=== PATIENT | male | born 1990 | race African-American/Black ===

== ENCOUNTER 2025-01-14 09:08 | Outpatient (REF) | payer OTHER, SELFPAY ==
[2025-01-14 13:15] LABS: Appearance Urine Clear; Glucose Urine UA Negative (Negative); PH 6.0 (5.0-9.0); Specific Gravity - Urine 1.025 (1.005-1.025)
[2025-01-14 13:17] LABS: MANUAL DIFF FLAG NO
[2025-01-14 13:26] LABS: Hematocrit 42.6 % (42.0-52.0); Hemoglobin 13.2 g/dl (14.0-18.0); Imm Gran Abs Auto 0.04 X10*3/uL (0.00-0.03); Imm Gran Pct Auto 0.4 % (0.0-0.4); Lymphocytes Absolute Auto 3.1 X10*3/uL (1.2-4.9); Mean Corpuscular HGB Conc 31.0 g/dl (31.0-36.0); Mean Corpuscular Hemoglobin 28.6 pg (27.0-33.0); Mean Corpuscular Volume 92.2 fL (80.0-98.0); NRBC Abs Auto 0.000 X10*3/uL (0.0-0.012); NRBC Pct Auto 0.0 /100WBC (0.0-0.2); Platelet Count 246 X10*3/uL (160-400); Red Blood Count 4.62 X10*6/uL (4.60-5.80); White Blood Count 10.8 X10*3/uL (4.8-10.8)
[2025-01-14 14:17] LABS: Alanine Aminotransferase 52 U/L (0-40); Albumin Level 4.6 g/dL (3.5-5.0); Alkaline Phosphatase 86 U/L (39-117); Anion Gap 12 (12-20); Aspartate Amino Transferase 46 U/L (5-37); Blood Urea Nitrogen 18 mg/dL (9-16); Calcium 9.7 mg/dL (8.4-10.2); Carbon Dioxide 27 mmol/L (22-29); Chloride 106 mmol/L (96-108); Cholesterol 200 mg/dL (<200); Estimated Glomerular Filt Rate > 60; HDL Cholesterol 44 mg/dL (>40); Magnesium 2.2 mg/dL (1.6-2.6); Potassium 4.5 mmol/L (3.3-5.1); Sodium 140 mmol/L (135-145); Total Protein 7.7 g/dL (6.5-8.0); Triglycerides 124 mg/dL (<150)
[2025-01-14 14:34] LABS: CT PCR Urine NOT DETECTED (Not Detect.); NG PCR Urine NOT DETECTED (Not Detect.)
[2025-01-14 14:40] LABS: Folate 9.5 ng/mL (> or = 4.0); Vitamin B12 461 pg/mL (200-900)
[2025-01-15 04:18] LABS: Syphilis Screen Nonreactive (Nonreactive)
[2025-01-15 05:05] LABS: HBS Num1 42.43 mIU/mL (0-7.99); HBsAGNum1 0.51 S/CO (0.00-0.99); HIV Num 1 0.09 S/CO (0.00-0.99); Hepatitis B Surface Antigen Negative (Negative); ~HepC Num1 0.08 S/CO (0.00-0.79); ~Hepatitis B Surface Antibody REACTIVE (Nonreactive); ~Hepatitis C Antibody Nonreactive (Nonreactive)
[2025-01-17 23:13] LABS: Chlamydia Trachomatis IgA <1:16 titer (<1:16)
[2025-01-18 10:48] LABS: VITAMIN D (1,25 OH) D3 37 pg/mL; Vit D (1,25-Dihydroxy) Total 37 pg/mL (18-72); Vitamin D (1,25 OH) D2 <8 pg/mL
== END 2025-01-14 09:09 | disposition home or self-care (01) ==
LOC: HO.HKASLDS 09:08
PROVIDERS: PCP Student in an Organized Health Care Education/Training Program; Visit Provider Student in an Organized Health Care Education/Training Program
DX: R06.83 Snoring (principal); M54.30 Sciatica, unspecified side; R53.83 Other fatigue; R51.9 Headache, unspecified; G89.29 Other chronic pain; G47.00 Insomnia, unspecified; E66.811 Obesity, class 1; F12.90 Cannabis use, unspecified, uncomplicated; Z68.32 Body mass index [BMI] 32.0-32.9, adult
CPT/HCPCS: 80053; 80061; 81003; 82607; 82652; 82746; 83036; 83735; 84443; 85025; 86631; 86632; 86706; 86780; 86803; 87340; 87389; 87491; 87591; 99202; 99212

== ENCOUNTER 2025-01-14 09:08 | Outpatient (AMB) | payer OTHER, SELFPAY ==
--- NOTE | 2025-01-14 09:20 | A.OFFPC_ITS ---
Vital Signs 01/14/25 09:29 Height 5 ft 11.26 in Weight 235 lb 6 oz BMI 32.6 BP 131/77 Blood Pressure Location Rt brachial Position Sitting Respiration 16 Pulse 80 Pulse Source Pulse Oximeter Temp 98 F Temp Source Oral Pulse Oximetry (%) 98 Oxygen Delivery Method Room Air Intake Visit Reasons: NEW PATIENT- Back pain Accompanied by: Self / Same As Patient Allergies No Known Allergies Allergy (Verified 01/14/25 09:21) Tobacco use date assessed: 01/14/25 Dental Screening Dental Screen Date: 01/14/25 Did you have a dental visit in the last 12 months?: No Did you have a dental problem in the last 6 months where you did not have access to dental care?: No Was dental information given to patient?: No HPI HPI Comments History of Present Illness Details Consent Patient was informed and verbally consented to the use of an ambient scribe for clinic note documentation during this visit. History of Present Illness The patient is a 34-year-old male presenting with new left-sided pain suspected to be sciatica. Sciatica: - The patient reports new left-sided dara n that started approximately a week ago, described as a movement-induced pain that feels like electricity and is not tender to touch. - The pain occasionally radiates to the back and is described as pulsating, with certain movements exacerbating the discomfort. - The patient has a history of chronic b ack pain but notes this pain is different and more concerning. - Current interventions include ibuprofe n, lidocaine patches, acetaminophen, and methylcarbamol, with some relief noted from the lidocaine patch. Chronic low back pain: - The patient has a history of chronic l ow back pain, which he describes as a persistent issue that has been present for a long time. - The pain is typically managed with ove s-szh-[id number] medications and has not been associated with any recent trauma or specific inciting event. Sleep disturbance: - The patient reports difficulty sleepin g, often waking up tired and with headaches, which has been a persistent issue. - A home sleep study has been recommende d to evaluate for possible sleep apnea or other sleep disorders. Review of Systems - Musculoskeletal: Reports new left-side d pain, chronic low back pain. Denies recent trauma. - Neurological: Reports pain described a s electricity-like and pulsating. Denies numbness or tingling. - Sleep: Reports difficulty sleeping, wa kellen up tired, and headaches upon waking. 10-point ROS reviewed and negative excep t as noted in HPI Past Medical History - Chronic low back pain Health Maintenance - Recommended a home sleep study to barbara woo for sleep apnea. Physical Exam General: Well-appearing, in no acute distress. Vital signs: Within normal limits. HEENT: Normocephalic, atraumatic. PERRLA, EOMI. Conjunctiva clear, sclera a nicteric. Oropharynx clear, mucous membranes moist. TMs intact bilaterally. Neck: Supple, no lymphadenopathy, no thyromegaly, no JVD or carotid bruits. Cardiovascular: RRR, normal S1/S2, no murmurs, rubs, or gallops. Peripheral pulses 2+ and symmetric. No edema. Respiratory: Lungs clear to auscultation bilaterally, no wheezes, rales, or rhonchi. Normal effort. Abdomen: Soft, non-tender, non-distended. Normoactive bowel sounds. No hepatosplenomegaly, no masses. MSK: Full range of motion, no joint swelling or deformity. Normal gait. Reports chronic low back pain and new pain on the left side, possibly related to sciatica. Pain described as pulsating and movement-related, not tender to touch. Skin: Warm, dry, intact. No rashes, lesions, or pallor. Neuro: Alert and oriented x3. Cranial nerves II-XII intact. Strength 5/5 throughout. Sensation intact. Reflexes 2+ symmetric. Normal coordination and gait. Psych: Appropriate mood and affect. Normal judgment and insight. Reports difficulty sleeping and waking up tired, possibly related to sleep apnea. Plan 1. Sciatica - Continue current medications including ibuprofen and lidocaine patches. Initiate physical therapy to strengthen muscles and reduce inflammation. - Plan to monitor symptoms and adjust tr eatment as necessary based on response to therapy. 2. Chronic Low Back Pain - Continue with current pain management regimen and encourage regular physical activity to prevent exacerbation. 3. Sleep Disturbance - Conduct a home sleep study to assess f or sleep apnea or other disorders. Follow-up to discuss results and potential interventions. Discussion Notes I discussed with the patient the likely diagnosis of sciatica and the importance of physical therapy to alleviate symptoms. We reviewed the current medication regimen and its effectiveness. I recommended a home sleep study to evaluate for sleep apnea, which could be contributing to his sleep disturbances. Patient Instructions - Continue taking ibuprofen and using li docaine patches as needed for pain relief. - Attend physical therapy sessions to [facility] and reduce inflammation. - Complete the home sleep study and retu rn the equipment as instructed. - Follow up in one week to review progre ss and discuss any changes in symptoms. Medical Decision Making The patient's presentation is consistent with sciatica, likely due to nerve compression. The decision to initiate physical therapy is based on the need to strengthen supporting muscles and reduce inflammation. A home sleep study is warranted to investigate potential sleep apnea, which may be affecting his overall health and contributing to his fatigue and headaches. Total time spent caring for the patient today was 30 minutes. This includes time spent before the visit reviewing the chart, time spent documenting, and time spent reviewing laboratory results, diagnostic imaging, medications, performing a medically necessary evaluation, counseling on diagnoses, care coordination, ordering appropriate tests. [facility] Medical History (Updated 01/14/25 @ 09:51 by Hair Nicole MD) Fatigue Snoring Insomnia Sciatica Chronic lower back pain Family History (Updated 01/14/25 @ 09:31 by Floyd Bates MA) Father Diabetes Mother No problems noted. Social History (Updated 01/14/25 @ 09:31 by Floyd Bates MA) Housing: House Alcohol intake: current Alcohol intake frequency: does not drink Patient Tobacco Use Status: Never used Tobacco service: No Current occupational status: employed Cognitive needs: No Hearing needs: No Vision needs: No Questionnaire PHQ-9 Over the last 2 weeks, how often have you been bothered by any of the following problems? 1. Little interest or pleasure in doing things: several days 2. Feeling down, depressed, or hopeless: not at all 3. Trouble falling or staying asleep, or sleeping too much: more than half the days 4. Feeling tired or having little energy: several days 5. Poor appetite or overeating: not at all 6. Feeling bad about yourself - or that you are a failure or have let yourself or your family down: not at all 7. Trouble concentrating on things, such as reading the newspaper or watching television: not at all 8. Moving or speaking so slowly that other people could have noticed. Or the opposite - being so fidgety or restless that you have been moving around a lot more than usual: not at all 9. Thoughts that you would be better off or of hurting yourself in some way: not at all Total score: 4 Source: Developed by Drs. Jesus Wallis, Stacy Foster, Colten Holloway and colleagues, with an educational blanche from [employer]. Thrive Questionnaire Date Thrive assessed: 01/14/25 I am a: Patient What is your living situation today?: I have a steady place to live Within the past 12 months, did the food you bought not last and you didn't have the money to get more?: Sometimes True Within the past 12 months, did you worry whether your food would run out before you got money to buy more?: Sometimes True Do you have trouble paying for medicines?: No Do you have trouble getting transportation to medical appointments?: No Do you have trouble paying your heating and electricity bill?: No Do you have trouble taking care of your child, family member or friend?: No Are you currently unemployed and looking for a job?: No Are you interested in more education?: Yes Please select the resources that you would like help with: Housing/Senior Care Currently or been in a relationship where the following occur: No concerns reported THRIVE Score: 2 AUDIT C Alcohol Use Questionnaire (AUDIT-C) 1. How often do you have a drink containing alcohol?: Never Total Score: 0 AMEENA-7 AMB Questionnaire AMEENA-7 Date AMEENA - 7 assessed: 01/14/25 Feeling nervous, anxious, or on edge: 1 = Several days Not being able to stop or control worryin = Not at all Worrying too much about different things: 1 = Several days Trouble relaxin = Several days Being so restless that it is hard to sit still: 0 = Not at all Becoming easily annoyed or irritable: 0 = Not at all Feeling afraid as if something awful might happen: 0 = Not at all Total AMEENA-7 score (0-4 normal; 5-9 mild; 10-14 moderate; 15-21 severe): 3 Source: Developed by Drs. Jesus Wallis, Stacy Foster, Colten Holloway and colleagues, with an educational blanche from [employer]. Physical exam (Primary Care) Vital Signs: Last Vital Signs Temp 98 F 01/14/25 09:29 Pulse 80 01/14/25 09:29 Resp 16 01/14/25 09:29 BP 131/77 01/14/25 09:29 Pulse Ox 98 01/14/25 09:29 Oxygen Delivery Method Room Air 01/14/25 09:29 BMI result Body Mass Index 32.6 Tobacco/Smoking Status: Tobacco use Status Tobacco use date assessed 01/14/25 01/14/25 09:24 Patient Tobacco Use Status Never used Tobacco 01/14/25 09:31 PHQ-9: PHQ-9 Score PHQ-9: Total score 4 01/14/25 09:24 Thrive Assessment: Date of Thrive Assessment Date Thrive assessed 01/14/25 01/14/25 09:24 Currently or been in a relationship where the following occur: No concerns reported Coding Level of Care Code New Pt Level 4 (84188) Diagnoses Sciatica M54.30 Chronic lower back pain M54.50; G89.29 Insomnia G47.00 Snoring R06.83 Fatigue R53.83 Class 1 obesity E66.811 Marijuana use F12.90 Assessment & Plan Assessment & Plan (1) Sciatica: Code(s): M54.30 - Sciatica, unspecified side Category: Medical (2) Chronic lower back pain: Code(s): M54.50 - Low back pain, unspecified; G89.29 - Other chronic pain Category: Medical (3) Insomnia: Code(s): G47.00 - Insomnia, unspecified Category: Medical (4) Snoring: Code(s): R06.83 - Snoring Category: Medical (5) Fatigue: Code(s): R53.83 - Other fatigue Category: Medical (6) Class 1 obesity: Code(s): E66.811 - Obesity, class 1 (7) Marijuana use: Code(s): F12.90 - Cannabis use, unspecified, uncomplicated Plan Orders: Orders Hemoglobin A1c Today Z13.9 - Encounter for screening, unspecified Hepatitis B Surface Antigen Today Z13.9 - Encounter for screening, unspecified TSH reflex Free T4 Today Z13.9 - Encounter for screening, unspecified UA CC w/rflx Micro + Cult Today Z13.9 - Encounter for screening, unspecified Vitamin B12 and Folate Today Z13.9 - Encounter for screening, unspecified Vitamin D 1,25 dihydroxy Today Z13.9 - Encounter for screening, unspecified PT Evaluation and Treatment Today G89.29 - Other chronic pain, M54.30 - Sciatica, unspecified side, M54.50 - Low back pain, unspecified Complete Blood Count Auto Diff Today Z13.9 - Encounter for screening, unspecifi ed Comprehensive Met. Panel Today Z13.9 - Encounter for screening, unspecified Hepatitis B Surface Antibody Today Z13.9 - Encounter for screening, unspecified Hepatitis C Antibody Today Z13.9 - Encounter for screening, unspecified HIV Ab/Ag Today Z13.9 - Encounter for screening, unspecified Lipid Panel Today Z13.9 - Encounter for screening, unspecified Chlamydia Species Ab Panel Today Z13.9 - Encounter for screening, unspecified CT NG by PCR Urine Today Z13.9 - Encounter for screening, unspecified Syphilis Screen Today Z13.9 - Encounter for screening, unspecified Magnesium Today Z13.9 - Encounter for screening, unspecified RT home sleep study Today G47.00 - Insomnia, unspecified, R06.83 - Snoring, R53.83 - Other fatigue
[2025-01-14 09:29] VITALS: BP 131/77; PULSE 80; RESP 16; TEMP 36.6; O2SAT 98; BMI 32.6
== END 2025-01-14 09:55 | disposition home or self-care (01) ==
LOC: HO.HMCFMS 09:08
PROVIDERS: PCP Student in an Organized Health Care Education/Training Program; Visit Provider Student in an Organized Health Care Education/Training Program
DX: M54.30 Sciatica, unspecified side (principal); M54.50 Low back pain, unspecified; G89.29 Other chronic pain; G47.00 Insomnia, unspecified; R06.83 Snoring; R53.83 Other fatigue; E66.811 Obesity, class 1; F12.90 Cannabis use, unspecified, uncomplicated

== ENCOUNTER 2025-01-29 09:25 | Outpatient (AMB) | payer OTHER, SELFPAY ==
[2025-01-29 09:32] VITALS: BP 130/74; PULSE 91; RESP 16; TEMP 36.5; O2SAT 97; BMI 32.1
--- NOTE | 2025-01-29 09:32 | A.OFFPC_ITS ---
Vital Signs 01/29/25 09:32 Height 5 ft 11.26 in Weight 232 lb 2 oz BMI 32.1 BP 130/74 Blood Pressure Location Lt brachial Position Sitting Respiration 16 Pulse 91 Pulse Source Pulse Oximeter Temp 97.7 F Temp Source Oral Pulse Oximetry (%) 97 Oxygen Delivery Method Room Air Intake Visit Reasons: 2 week follow up Accompanied by: Self / Same As Patient Allergies No Known Allergies Allergy (Verified 01/29/25 09:35) Medication List - Last Reconciled 01/29/25 by Hair Nicole MD acetaminophen 1,000 mg PO Q6H PRN ibuprofen 600 mg PO QID PRN lidocaine 5% 1 patch topical Q3D methocarbamol 750 mg PO BEDTIME triamcinolone acetonide 0.1% 1 appl topical DAILY Tobacco use date assessed: 01/14/25 Dental Screening Dental Screen Date: 01/29/25 Did you have a dental visit in the last 12 months?: No Did you have a dental problem in the last 6 months where you did not have access to dental care?: No Was dental information given to patient?: No HPI HPI Comments History of Present Illness Details Consent Patient was informed and verbally consented to the use of an ambient scribe for clinic note documentation during this visit. History of Present Illness The patient is a 34-year-old male presenting for a review of lab results and management of multiple ongoing issues. Hypercholesterolemia and Elevated Liver Enzymes: Recent lab work revealed an LDL cholesterol of 132 mg/dL, which is above the recommended level of less than 100 mg/dL, and a total cholesterol of 200 mg/dL. Associated with this, his liver enzymes are slightly elevated, which is attributed to high fat in the diet. Mild Anemia: Laboratory results show a slightly low hemoglobin of 13.2 g/dL, with a normal reference cited as 14.0 g/dL. Other hematological indices, including white blood cells, red blood cells, and hematocrit, are normal, and there are no indicators of bleeding. Low Back Pain with Sciatica: The patient reports a long history of uncomfortable pain and discomfort in his back, lasting for a significant time, potentially a year or more. He experiences episodes of strong pain with movement and associated sciatica on the left side. For management at home, he uses acetaminophen, ibuprofen, and lidocaine patches sparingly and only when the pain is bothersome. Dermatitis of Left Foot: The patient has a skin condition on his left foot which started small and has worsened over time. Medications: - Acetaminophen as needed for back pain. - Ibuprofen as needed for back pain. - Lidocaine patch as needed for back dara n. Social History: - Diet: A diet high in fat, including it ems like cheese and fried eggs, was discussed as a contributor to high cholesterol. Diagnostic Results: - CBC: White and red blood cells are nor mal. - Hemoglobin is 13.2 g/dL (slightly low) . - Hematocrit is normal. - CMP: Sodium, potassium, and other elec trolytes are normal. - Kidney function is normal. - Liver enzymes are slightly high. - Lipids: LDL cholesterol is 132 mg/dL ( high). - Total cholesterol is 200 mg/dL (border line high). - Hemoglobin A1c: Normal. - Other Labs: Sugar, magnesium, calcium, vitamin B12, vitamin D, folate, and thyroid levels are normal. - Urinalysis: Normal. - Infectious Diseases: Tests for syphili s, chlamydia, hepatitis B, hepatitis C, and HIV are negative. Review of Systems - Musculoskeletal: Reports chronic low b ack pain, which can be strong with movement. - Neurological: Reports associated left- sided sciatica. - Integumentary: Reports a skin conditio n on the left foot that has worsened over time. 10-point ROS reviewed and negative excep t as noted in HPI Past Medical History - Chronic low back pain with left-sided sciatica Health Maintenance - Healthy lifestyle discussion: Advised to make dietary changes to lower cholesterol, such as reducing intake of cheese and fried eggs. - Screening tests: Recent lab work revie wed, including negative screens for STIs (syphilis, chlamydia, HIV) and viral hepatitis (B and C). - Referrals: Referrals for director of physical therapy apy, a home sleep study, and a race car driver were discussed. Physical Exam General: Well-appearing, in no acute distress. Vital signs: Within normal limits. HEENT: Normocephalic, atraumatic. PERRLA, EOMI. Conjunctiva clear, sclera anicteric. Oropharynx clear, mucous membranes moist. TMs intact bilaterally. Neck: Supple, no lymphadenopathy, no thyromegaly, no JVD or carotid bruits. Cardiovascular: RRR, normal S1/S2, no murmurs, rubs, or gallops. Peripheral pulses 2+ and symmetric. No edema. Respiratory: Lungs clear to auscultation bilaterally, no wheezes, rales, or rhonchi. Normal effort. Abdomen: Soft, non-tender, non-distended. Normoactive bowel sounds. No hepatosplenomegaly, no masses. MSK: Full range of motion, no joint swelling or deformity. Normal gait. Reports discomfort and pain in the back, with sciatica on the left side. Skin: Warm, dry, intact. No rashes, lesions, or pallor. Reports eczema-like condition on the left foot. Neuro: Alert and oriented x3. Cranial nerves II-XII intact. Strength 5/5 throughout. Sensation intact. Reflexes 2+ symmetric. Normal coordination and gait. Psych: Appropriate mood and affect. Normal judgment and insight. Plan 1. Hypercholesterolemia And Elevated Jolynn er Enzymes - Advised lifestyle and dietary modifica tions to address high cholesterol, such as avoiding high-fat foods. - A referral will be sent to a nutrition ist for education and guidance. - Plan to repeat lipid panel and liver f unction tests in 3-6 months to assess the impact of lifestyle changes. 2. Low Back Pain With Left Sciatica - A referral will be placed for an X-ray of the back to begin evaluation. - Patient was reminded about the [facility] referral for physical therapy and encouraged to follow up. - Patient may continue using acetaminoph en, ibuprofen, and lidocaine patches at home as needed for pain. 3. Dermatitis Of The Left Foot - Prescribed triamcinolone cream to be a pplied for two weeks. - Schedule a follow-up appointment in tw o weeks to evaluate the effectiveness of the treatment. 4. Mild Anemia - Due to the hemoglobin being only sligh tly below the normal range (13.2 vs 14.0 g/dL) and all other indices being normal, the plan is to monitor. - The CBC will be repeated along with ot her labs in 3-6 months. 5. Suspected Sleep Apnea - Patient was reminded about the [facility] referral for a home sleep study and encouraged to follow up to schedule it. Discussion Notes I reviewed the patient's lab results with him. I explained that his hemoglobin was slightly low at 13.2, but since all other blood counts were normal, we would simply repeat the test in 3-6 months. I highlighted that his LDL cholesterol was high at 132 and his liver enzymes were slightly elevated, likely due to his diet. I recommended lifestyle changes and provided a referral to a race car driver for dietary counseling. For his chronic low back pain with left-sided sciatica, I ordered a back X-ray and advised him to follow up on the physical therapy referral. Regarding the rash on his left foot, I suspect it is eczema and have prescribed triamcinolone cream, with a plan to see him back in two weeks to assess the response. I also reminded him to contact the referral services for physical therapy and the home sleep study, as they had not yet reached out to him. Patient Instructions - Follow up on the referrals for physica l therapy and a home sleep study. - Change your diet to help lower your ch olesterol; try to eat fewer high-fat foods like cheese and fried eggs. - Expect a call from a race car driver who will help you with your diet. - We will repeat your blood tests in 3 t o 6 months. - Apply the prescribed triamcinolone cre am to the rash on your left foot for two weeks. - Come back to the clinic in two weeks t o check on your foot rash. - Go for an X-ray of your back. Medical Decision Making The patient presented for a review of lab results and management of several chronic complaints. His lab work showed a mild anemia with a hemoglobin of 13.2, which is clinically insignificant at this time given that other indices are normal, and will be monitored with repeat labs in 3-6 months. The patient's hypercholesterolemia (LDL 132) and elevated liver enzymes are likely secondary to dietary choices, suggesting possible non-alcoholic fatty liver disease. The initial and most appropriate management is to pursue lifestyle modification, supported by a referral to a race car driver, with a plan to re-evaluate labs before considering pharmacotherapy. For his long-standing low back pain with left-sided sciatica, an initial diagnostic workup including a lumbar spine X-ray is warranted to assess for structural causes, along with conservative management via physical therapy. The skin lesion on the left foot, which has been worsening, appears eczematous rather than fungal. A trial of a topical corticosteroid (triamcinolone) is a reasonable first step, with a short-interval follow-up in two weeks to assess clinical response. Referrals for physical therapy and a home sleep study were previously placed, and the patient was advised to proactively contact the referral services to schedule these evaluations. Total time spent caring for the patient today was 30 minutes. This includes time spent before the visit reviewing the chart, time spent documenting, and time spent reviewing laboratory results, diagnostic imaging, medications, performing a medically necessary evaluation, counseling on diagnoses, care coordination. [facility] Medical History (Updated 01/29/25 @ 20:24 by Hair Nicole MD) Class 1 obesity Sleep apnea Dermatitis of left foot Mild anemia Elevated liver enzymes Hyperlipidemia Fatigue Snoring Insomnia Sciatica Chronic lower back pain Family History Father Diabetes Mother No problems noted. Social History Housing: House Alcohol intake: current Alcohol intake frequency: does not drink Patient Tobacco Use Status: Never used Tobacco service: No Current occupational status: employed Cognitive needs: No Hearing needs: No Vision needs: No Questionnaire Thrive Questionnaire Date Thrive assessed: 01/29/25 I am a: Patient What is your living situation today?: I have a steady place to live Within the past 12 months, did the food you bought not last and you didn't have the money to get more?: Sometimes True Within the past 12 months, did you worry whether your food would run out before you got money to buy more?: Sometimes True Do you have trouble paying for medicines?: No Do you have trouble getting transportation to medical appointments?: No Do you have trouble paying your heating and electricity bill?: No Do you have trouble taking care of your child, family member or friend?: No Are you currently unemployed and looking for a job?: No Are you interested in more education?: Yes Please select the resources that you would like help with: Housing/Longterm Currently or been in a relationship where the following occur: No concerns reported THRIVE Score: 2 AMEENA-7 AMB Questionnaire AMEENA-7 Date AMEENA - 7 assessed: 01/14/25 Source: Developed by Drs. Jesus Wallis, Stacy Foster, Colten Holloway and colleagues, with an educational blanche from [employer]. Physical exam (Primary Care) Vital Signs: Last Vital Signs Temp 97.7 F 01/29/25 09:32 Pulse 91 01/29/25 09:32 Resp 16 01/29/25 09:32 BP 130/74 01/29/25 09:32 Pulse Ox 97 01/29/25 09:32 Oxygen Delivery Method Room Air 01/29/25 09:32 BMI result Body Mass Index 32.1 Tobacco/Smoking Status: Tobacco use Status Tobacco use date assessed 01/14/25 01/29/25 09:33 Patient Tobacco Use Status Never used Tobacco 01/29/25 09:33 Thrive Assessment: Date of Thrive Assessment Date Thrive assessed 01/29/25 01/29/25 09:41 Currently or been in a relationship where the following occur: No concerns reported Coding Level of Care Code Est Pt Level 4 (71219) Diagnoses Hyperlipidemia E78.5 Elevated liver enzymes R74.8 Chronic lower back pain M54.50; G89.29 Sciatica M54.30 Mild anemia D64.9 Dermatitis of left foot L30.9 Sleep apnea G47.30 Class 1 obesity E66.9 Assessment & Plan Assessment & Plan (1) Hyperlipidemia: Code(s): E78.5 - Hyperlipidemia, unspecified Category: Medical (2) Elevated liver enzymes: Code(s): R74.8 - Abnormal levels of other serum enzymes Category: Medical (3) Chronic lower back pain: Code(s): M54.50 - Low back pain, unspecified; G89.29 - Other chronic pain Category: Medical (4) Sciatica: Code(s): M54.30 - Sciatica, unspecified side Category: Medical (5) Mild anemia: Code(s): D64.9 - Anemia, unspecified Category: Medical (6) Dermatitis of left foot: Code(s): L30.9 - Dermatitis, unspecified Category: Medical (7) Sleep apnea: Code(s): G47.30 - Sleep apnea, unspecified Category: Medical (8) Class 1 obesity: Code(s): E66.9 - Obesity, unspecified Category: Medical Plan Orders: Orders XR lumbar spine 2-3V Today G89.29 - Other chronic pain, M54.30 - Sciatica, unspecified side, M54.50 - Low back pain, unspecified Referrals Nurse Navigator Referral E78.5 - Hyperlipidemia, unspecified Medications: New triamcinolone acetonide 0.1% 1 appl topical DAILY 80 grams 0RF
== END 2025-01-29 09:54 | disposition home or self-care (01) ==
LOC: HO.HMCFMS 09:25
PROVIDERS: PCP Student in an Organized Health Care Education/Training Program; Visit Provider Student in an Organized Health Care Education/Training Program
DX: E78.5 Hyperlipidemia, unspecified (principal); R74.8 Abnormal levels of other serum enzymes; M54.50 Low back pain, unspecified; G89.29 Other chronic pain; M54.30 Sciatica, unspecified side; D64.9 Anemia, unspecified; L30.9 Dermatitis, unspecified; G47.30 Sleep apnea, unspecified; E66.9 Obesity, unspecified

== ENCOUNTER → 2025-01-29 09:25 | Outpatient (BNVA) | payer OTHER, SELFPAY | PROVIDERS: PCP Student in an Organized Health Care Education/Training Program; Visit Provider Student in an Organized Health Care Education/Training Program | DX: R74.8 Abnormal levels of other serum enzymes (principal); E78.5 Hyperlipidemia, unspecified; M54.50 Low back pain, unspecified; M54.30 Sciatica, unspecified side; D64.9 Anemia, unspecified; L30.9 Dermatitis, unspecified; G47.30 Sleep apnea, unspecified; E66.9 Obesity, unspecified; G89.29 Other chronic pain; Z68.32 Body mass index [BMI] 32.0-32.9, adult | CPT/HCPCS: 99212 ==